=== PATIENT | male | born 1980 | race Caucasian/White ===

== ENCOUNTER 2018-04-30 14:18 | Emergency (ER) | payer SELFPAY ==
[2018-04-30 15:03] LABS: ADD MAN DIFF? NO
[2018-04-30 15:07] LABS: BASOPHILS % 0.5 % (0.0-2.0); EOSINOPHILS % 0.5 % (0.0-7.0); HEMOGLOBIN 14.1 g/dl (14.0-18.0); LYMPHOCYTES # 1.2 10^3/ul (0.8-2.9); LYMPHOCYTES % 15.1 % (15.0-51.0); MEAN CORPUSCULAR HEMOGLOBIN 30.1 pg (29.0-33.0); MEAN CORPUSCULAR HGB CONC 34.4 g/dl (32.0-37.0); MEAN CORPUSCULAR VOLUME 87.6 fl (82.0-101.0); MEAN PLATELET VOLUME 9.9 fl (7.4-10.4); MONOCYTE # 0.4 10^3/ul (0.3-0.9); MONOCYTES % 4.6 % (0.0-11.0); NEUTROPHIL # 6.2 10^3/ul (1.6-7.5); PLATELET COUNT 214 10^3/UL (140-415); RED BLOOD COUNT 4.68 10^6/ul (4.70-6.10)
[2018-04-30 15:07] LABS: WHITE BLOOD COUNT 7.9 10^3/ul (4.8-10.8)
[2018-04-30] MEDS: SOD CHLORIDE 0.9% 1,000 ML IV (15:12)
[2018-04-30 15:24] LABS: ANION GAP 13 (8-16); BLOOD UREA NITROGEN 15 mg/dl (7-20); CALCIUM 8.9 mg/dl (8.4-10.2); CARBON DIOXIDE 24 mmol/L (21-31); CHLORIDE 107 mmol/L (97-110); GLUCOSE 112 mg/dl (70-220); POTASSIUM 3.7 mmol/L (3.5-5.1); SODIUM 140 mmol/L (135-144)
[2018-04-30 15:35] LABS: TROPONIN-I < 0.012 ng/ml (0.000-0.120)
== END 2018-04-30 17:01 | disposition home or self-care (01) ==
LOC: E/R 14:18
DX: R55 Syncope and collapse (principal); R53.1 Weakness; R19.7 Diarrhea, unspecified
CPT/HCPCS: 36415; 80048; 82962; 84484; 85025; 93005; 96360; 99284-25